=== PATIENT | female | born 1935 | race Caucasian/White ===

== ENCOUNTER → 2016-07-25 | Outpatient (REF) | payer MEDICARE, BC ==
[2016-07-25 14:19] LABS: CALCIUM LEVEL 8.4 MG/DL (8.8-10.2); CREATININE FOR GFR 0.98 MG/DL (0.55-1.02); FREE T4 0.96 NG/DL (0.76-1.46); POTASSIUM SERUM 3.8 MEQ/L (3.5-5.1)
== END ==
LOC: M LABDRAW1 13:00
PROVIDERS: ATTEND Physician Assistant
DX: I10 Essential (primary) hypertension (principal); R73.01 Impaired fasting glucose; E03.9 Hypothyroidism, unspecified; N95.1 Menopausal and female climacteric states

== ENCOUNTER → 2017-02-20 | Outpatient (REF) | payer MEDICARE, BC ==
[2017-02-20 12:30] LABS: ALBUMIN 3.5 GM/DL (3.2-5.2); ALBUMIN/GLOBULIN RATIO 1.03 (1.00-1.93); BILIRUBIN,TOTAL 0.3 MG/DL (0.2-1.0); CALCIUM LEVEL 8.6 MG/DL (8.8-10.2); CREATININE FOR GFR 1.24 MG/DL (0.55-1.02); FREE T4 1.24 NG/DL (0.76-1.46); GLOMERULAR FILTRATION RATE 44.1 (>32); POTASSIUM SERUM 4.1 MEQ/L (3.5-5.1); TOTAL PROTEIN 6.9 GM/DL (6.4-8.2)
== END ==
LOC: M LABDRAW1 10:06
PROVIDERS: ATTEND Physician Assistant
DX: I10 Essential (primary) hypertension (principal); E03.9 Hypothyroidism, unspecified; E83.51 Hypocalcemia

== ENCOUNTER → 2017-08-28 | Outpatient (REF) | payer MEDICARE, BC ==
[2017-08-28 12:34] LABS: ESTIMATED AVERAGE GLUCOSE 126 MG/DL (60-110)
[2017-08-28 13:15] LABS: ANION GAP 9 MEQ/L (8-16); BLOOD UREA NITROGEN 16 MG/DL (7-18); CARBON DIOXIDE LEVEL 25 MEQ/L (21-32); CHLORIDE LEVEL 109 MEQ/L (98-107); CHOLESTEROL LEVEL 162 MG/DL (<200); CREATININE FOR GFR 1.05 MG/DL (0.55-1.30); FREE T4 1.13 NG/DL (0.76-1.46); GLOMERULAR FILTRATION RATE 53.4 (>32); GLUCOSE, FASTING 127 MG/DL (70-100); HDL CHOLESTEROL 36 MG/DL (>40); NON-HDL-C 126 MG/DL; POTASSIUM SERUM 3.8 MEQ/L (3.5-5.1); SODIUM LEVEL 143 MEQ/L (136-145); TRIGLYCERIDES LEVEL 215 MG/DL (<150)
== END ==
LOC: M LABDRAW1 09:24
DX: E03.9 Hypothyroidism, unspecified (principal); R73.01 Impaired fasting glucose; I10 Essential (primary) hypertension
CPT/HCPCS: 84443

== ENCOUNTER → 2017-08-31 | Outpatient (REF) | payer MEDICARE, BC ==
[2017-08-31 14:15] LABS: FREE T4 1.14 NG/DL (0.76-1.46)
[2017-09-03 00:06] LABS: HERPES ZOSTER, VARICELLA IgG 1671 index (Immune >165)
[2017-09-03 00:06] LABS: HERPES ZOSTER, VARICELLA IgM <0.91 index (0.00-0.90)
== END ==
LOC: M LAB REF 12:00
DX: E03.9 Hypothyroidism, unspecified (principal); Z28.3 Underimmunization status
CPT/HCPCS: 84443

== ENCOUNTER → 2018-02-19 | Outpatient (REF) | payer MEDICARE, BC ==
[2018-02-19 12:32] LABS: ANION GAP 7 MEQ/L (8-16); BLOOD UREA NITROGEN 14 MG/DL (7-18); CALCIUM LEVEL 8.6 MG/DL (8.8-10.2); CARBON DIOXIDE LEVEL 30 MEQ/L (21-32); CHLORIDE LEVEL 106 MEQ/L (98-107); CREATININE FOR GFR 1.14 MG/DL (0.55-1.30); FREE T4 0.99 NG/DL (0.76-1.46); GLOMERULAR FILTRATION RATE 48.5 (>32); GLUCOSE, FASTING 125 MG/DL (70-100); POTASSIUM SERUM 3.9 MEQ/L (3.5-5.1); SODIUM LEVEL 143 MEQ/L (136-145)
[2018-02-19 13:14] LABS: ESTIMATED AVERAGE GLUCOSE 128 MG/DL (60-110); HEMOGLOBIN A1c 6.1 %
== END ==
LOC: M LABDRAW1 11:07
DX: I10 Essential (primary) hypertension (principal); E03.9 Hypothyroidism, unspecified; R63.5 Abnormal weight gain
CPT/HCPCS: 84443

== ENCOUNTER → 2018-03-30 | Outpatient (REF) | payer MEDICARE, BC ==
[2018-03-30 13:06] LABS: ANION GAP 10 MEQ/L (8-16); BLOOD UREA NITROGEN 28 MG/DL (7-18); CALCIUM LEVEL 9.4 MG/DL (8.8-10.2); CARBON DIOXIDE LEVEL 28 MEQ/L (21-32); CHLORIDE LEVEL 103 MEQ/L (98-107); CREATININE FOR GFR 1.35 MG/DL (0.55-1.30); FREE T4 1.29 NG/DL (0.76-1.46); GLOMERULAR FILTRATION RATE 39.9 (>32); GLUCOSE, FASTING 106 MG/DL (70-100); POTASSIUM SERUM 3.8 MEQ/L (3.5-5.1); SODIUM LEVEL 141 MEQ/L (136-145)
== END ==
LOC: M LABDRAW1 10:50
DX: I10 Essential (primary) hypertension (principal); E03.9 Hypothyroidism, unspecified
CPT/HCPCS: 84443

== ENCOUNTER → 2018-08-28 | Outpatient (REF) | payer MEDICARE, BC ==
[2018-08-28 16:27] LABS: CALCIUM LEVEL 9.1 MG/DL (8.8-10.2); CREATININE FOR GFR 1.14 MG/DL (0.55-1.30); GLOMERULAR FILTRATION RATE 48.5 (>32); POTASSIUM SERUM 3.5 MEQ/L (3.5-5.1)
== END ==
LOC: M LABDRAW1 16:05
PROVIDERS: ATTEND Physician Assistant
DX: I10 Essential (primary) hypertension (principal)

== ENCOUNTER → 2018-11-12 | Outpatient (REF) | payer MEDICARE, BC ==
[2018-11-12 12:07] LABS: CALCIUM LEVEL 9.2 MG/DL (8.8-10.2); CREATININE FOR GFR 1.35 MG/DL (0.55-1.30); FREE T4 1.05 NG/DL (0.76-1.46); GLOMERULAR FILTRATION RATE 39.9 (>32); POTASSIUM SERUM 3.6 MEQ/L (3.5-5.1); THYROID STIMULATING HORMONE 2.01 uIU/ML (0.358-3.740)
== END ==
LOC: M LABDRAW1 09:23
PROVIDERS: ATTEND Physician Assistant
DX: I10 Essential (primary) hypertension (principal); R73.01 Impaired fasting glucose; E03.9 Hypothyroidism, unspecified

== ENCOUNTER → 2019-03-01 | Outpatient (REF) | payer MEDICARE, BC ==
[2019-03-01 16:00] LABS: HEMATOCRIT 38.1 % (36.0-47.0); HEMOGLOBIN 12.8 g/dl (12.0-15.5); MEAN CORPUSCULAR HGB CONC 33.6 g/dl (32.0-36.5); MEAN CORPUSCULAR VOLUME 89.2 fl (80.0-96.0); PLATELET COUNT, AUTOMATED 226 10^3/uL (150-450); RED BLOOD COUNT 4.27 10^6/uL (4.00-5.40); WHITE BLOOD COUNT 5.9 10^3/uL (4.0-10.0)
[2019-03-01 16:33] LABS: ALBUMIN 3.7 GM/DL (3.2-5.2); ALT/SGPT 18 U/L (12-78); BILIRUBIN,TOTAL 0.4 MG/DL (0.2-1.0); BLOOD UREA NITROGEN 25 MG/DL (7-18); CALCIUM LEVEL 9.1 MG/DL (8.8-10.2); CARBON DIOXIDE LEVEL 31 MEQ/L (21-32); CHLORIDE LEVEL 103 MEQ/L (98-107); CHOLESTEROL LEVEL 188 MG/DL (<200); CHOLESTEROL RISK RATIO 5.222 (<5); CREATININE FOR GFR 1.31 MG/DL (0.55-1.30); FREE T4 1.14 NG/DL (0.76-1.46); GLOMERULAR FILTRATION RATE 41.2 (>32); GLUCOSE, FASTING 116 MG/DL (70-100); HDL CHOLESTEROL 36 MG/DL (>40); NON-HDL-C 152 MG/DL; POTASSIUM SERUM 3.9 MEQ/L (3.5-5.1); SODIUM LEVEL 139 MEQ/L (136-145); TOTAL PROTEIN 7.4 GM/DL (6.4-8.2); TRIGLYCERIDES LEVEL 415 MG/DL (<150)
[2019-03-01 16:34] LABS: MALB URINE SIEMENS 13.8 MG/L; MAU/CREAT RATIO 11.7 MCG/MG (0.0-30.0)
[2019-03-01 16:35] LABS: HEMOGLOBIN A1c 5.7 %
== END ==
LOC: M LAB REF 15:34
DX: I10 Essential (primary) hypertension (principal); E78.2 Mixed hyperlipidemia; E03.9 Hypothyroidism, unspecified; R73.01 Impaired fasting glucose

== ENCOUNTER → 2020-03-14 | Outpatient (REF) | payer MEDICARE, BC ==
[2020-03-14 15:42] LABS: HEMATOCRIT 39.1 % (36.0-47.0); HEMOGLOBIN 12.8 g/dl (12.0-15.5); MEAN CORPUSCULAR HEMOGLOBIN 28.8 pg (27.0-33.0); MEAN CORPUSCULAR HGB CONC 32.7 g/dl (32.0-36.5); MEAN CORPUSCULAR VOLUME 87.9 fl (80.0-96.0); PLATELET COUNT, AUTOMATED 228 10^3/uL (150-450); RED BLOOD COUNT 4.45 10^6/uL (4.00-5.40); WHITE BLOOD COUNT 6.6 10^3/uL (4.0-10.0)
[2020-03-14 16:04] LABS: TOTAL PROTEIN,RANDOM URINE 18.4 MG/DL (0.0-12.0)
[2020-03-14 16:18] LABS: HEMOGLOBIN A1c 5.8 %
== END ==
LOC: M LAB REF 15:14
PROVIDERS: ATTEND Physician Assistant
DX: I10 Essential (primary) hypertension (principal); E78.2 Mixed hyperlipidemia; R73.01 Impaired fasting glucose; E03.9 Hypothyroidism, unspecified

== ENCOUNTER → 2020-03-16 | Outpatient (REF) | payer MEDICARE, BC ==
[2020-03-16 18:45] LABS: ALBUMIN 3.9 GM/DL (3.2-5.2); BILIRUBIN,TOTAL 0.4 MG/DL (0.2-1.0); CALCIUM LEVEL 9.7 MG/DL (8.8-10.2); CHOLESTEROL RISK RATIO 4.512 (<5); CREATININE FOR GFR 1.92 MG/DL (0.55-1.30); FREE T4 1.25 NG/DL (0.76-1.46); GLOMERULAR FILTRATION RATE 26.4 (>32); POTASSIUM SERUM 4.2 MEQ/L (3.5-5.1); THYROID STIMULATING HORMONE 3.29 uIU/ML (0.358-3.740); TOTAL PROTEIN 7.5 GM/DL (6.4-8.2)
== END ==
LOC: M LAB REF 16:53
PROVIDERS: ATTEND Physician Assistant
DX: I10 Essential (primary) hypertension (principal); E78.2 Mixed hyperlipidemia; R73.01 Impaired fasting glucose; E03.9 Hypothyroidism, unspecified

== ENCOUNTER → 2020-11-26 | Outpatient (REF) | payer MEDICARE, BC ==
[2020-11-26 12:28] LABS: HEMATOCRIT 40.5 % (36.0-47.0); HEMOGLOBIN 13.6 g/dl (12.0-15.5); MEAN CORPUSCULAR HEMOGLOBIN 29.1 pg (27.0-33.0); MEAN CORPUSCULAR HGB CONC 33.6 g/dl (32.0-36.5); MEAN CORPUSCULAR VOLUME 86.7 fl (80.0-96.0); PLATELET COUNT, AUTOMATED 216 10^3/uL (150-450); RED BLOOD COUNT 4.67 10^6/uL (4.00-5.40)
[2020-11-26 12:54] LABS: TOTAL PROTEIN,RANDOM URINE 33.9 MG/DL (0.0-12.0)
[2020-11-26 13:05] LABS: BILIRUBIN,TOTAL 0.4 MG/DL (0.2-1.0); CALCIUM LEVEL 9.6 MG/DL (8.8-10.2); CREATININE FOR GFR 1.14 MG/DL (0.55-1.30); FREE T4 1.03 NG/DL (0.76-1.46); GLOMERULAR FILTRATION RATE 48.2 (>32); POTASSIUM SERUM 3.7 MEQ/L (3.5-5.1); THYROID STIMULATING HORMONE 3.98 uIU/ML (0.358-3.740); TOTAL PROTEIN 7.7 GM/DL (6.4-8.2)
[2020-11-26 13:14] LABS: HEMOGLOBIN A1c 5.7 %
== END ==
LOC: M LAB REF 10:56
PROVIDERS: ATTEND Internal Medicine
DX: I10 Essential (primary) hypertension (principal); E78.2 Mixed hyperlipidemia; R73.01 Impaired fasting glucose; E03.9 Hypothyroidism, unspecified

== ENCOUNTER → 2021-10-04 | Outpatient (REF) | payer MEDICARE, BC ==
[2021-10-04 17:50] LABS: BASO % 0.5 % (0.0-1.0); EOS # 0.3 10^3/uL (0.0-0.5); EOS % 5.2 % (0.0-3.0); HEMATOCRIT 40.5 % (36.0-47.0); HEMOGLOBIN 13.5 g/dl (12.0-15.5); LYMPH # 2.2 10^3/uL (1.5-5.0); LYMPH % 34.7 % (24.0-44.0); MEAN CORPUSCULAR HEMOGLOBIN 29.8 pg (27.0-33.0); MEAN CORPUSCULAR HGB CONC 33.3 g/dl (32.0-36.5); MEAN CORPUSCULAR VOLUME 89.4 fl (80.0-96.0); MONO # 0.6 10^3/uL (0.0-0.8); MONO % 9.4 % (2.0-8.0); NEUTROPHILS # 3.1 10^3/uL (1.5-8.5); NEUTROPHILS % 49.7 % (36.0-66.0); PLATELET COUNT, AUTOMATED 219 10^3/uL (150-450); RED BLOOD COUNT 4.53 10^6/uL (4.00-5.40); WHITE BLOOD COUNT 6.3 10^3/uL (4.0-10.0)
[2021-10-04 18:14] LABS: ALBUMIN 3.5 GM/DL (3.2-5.2); BILIRUBIN,TOTAL 0.7 MG/DL (0.2-1.0); CALCIUM LEVEL 8.7 MG/DL (8.8-10.2); CHOLESTEROL RISK RATIO 5.25 (<5); CREATININE FOR GFR 1.56 MG/DL (0.55-1.30); FREE T4 1.01 NG/DL (0.76-1.46); GLOMERULAR FILTRATION RATE 33.5 (>32); POTASSIUM SERUM 3.6 MEQ/L (3.5-5.1); THYROID STIMULATING HORMONE 7.82 uIU/ML (0.358-3.740); TOTAL PROTEIN 6.6 GM/DL (6.4-8.2)
[2021-10-04 18:16] LABS: TOTAL 25(OH) VITAMIN D 39.2 NG/ML (30.0-100.0)
[2021-10-04 18:51] LABS: HEMOGLOBIN A1c 5.9 %
== END ==
LOC: M LAB REF 17:32
PROVIDERS: ATTEND Internal Medicine
DX: E03.9 Hypothyroidism, unspecified (principal); R73.01 Impaired fasting glucose; E78.2 Mixed hyperlipidemia; I10 Essential (primary) hypertension

== ENCOUNTER → 2022-01-28 | Outpatient (REF) | payer MEDICARE, BC ==
[2022-01-28 16:49] LABS: ALBUMIN 3.7 GM/DL (3.2-5.2); BILIRUBIN,TOTAL 0.4 MG/DL (0.2-1.0); CALCIUM LEVEL 9.1 MG/DL (8.8-10.2); CREATININE FOR GFR 1.19 MG/DL (0.55-1.30); GLOMERULAR FILTRATION RATE 45.7 (>32); POTASSIUM SERUM 3.9 MEQ/L (3.5-5.1); THYROID STIMULATING HORMONE 1.68 uIU/ML (0.358-3.740); THYROXINE (T4) 9.8 UG/DL (4.5-12.0); TOTAL PROTEIN 7.6 GM/DL (6.4-8.2)
== END ==
LOC: M LAB REF 14:38
PROVIDERS: ATTEND Internal Medicine
DX: N18.9 Chronic kidney disease, unspecified (principal); E03.9 Hypothyroidism, unspecified

== ENCOUNTER → 2022-09-28 | Outpatient (REF) | payer MEDICARE, BC ==
[2022-09-28 12:16] LABS: BASO % 0.5 % (0.0-1.0); EOS # 0.2 10^3/uL (0.0-0.5); EOS % 3.5 % (0.0-3.0); HEMOGLOBIN 13.8 g/dl (12.0-15.5); LYMPH # 2.8 10^3/uL (1.5-5.0); LYMPH % 44.1 % (24.0-44.0); MEAN CORPUSCULAR HEMOGLOBIN 29.7 pg (27.0-33.0); MEAN CORPUSCULAR HGB CONC 33.7 g/dl (32.0-36.5); MEAN CORPUSCULAR VOLUME 88.4 fl (80.0-96.0); MONO # 0.5 10^3/uL (0.0-0.8); MONO % 7.4 % (2.0-8.0); NEUTROPHILS # 2.7 10^3/uL (1.5-8.5); NEUTROPHILS % 43.4 % (36.0-66.0); PLATELET COUNT, AUTOMATED 198 10^3/uL (150-450); RED BLOOD COUNT 4.64 10^6/uL (4.00-5.40); WHITE BLOOD COUNT 6.3 10^3/uL (4.0-10.0)
[2022-09-28 12:52] LABS: ALBUMIN 3.9 G/DL (3.2-5.2); BILIRUBIN,TOTAL 0.5 MG/DL (0.3-1.2); CHOLESTEROL RISK RATIO 5.28 (<5); CREATININE FOR GFR 1.16 MG/DL (0.55-1.30); HDL CHOLESTEROL 31.4 MG/DL (>40); NON-HDL-C 134.6 MG/DL; POTASSIUM SERUM 4.3 MMOL/L (3.5-5.1); TOTAL PROTEIN 7.1 G/DL (5.7-8.2)
[2022-09-28 12:53] LABS: FREE T4 1.02 NG/DL (0.89-1.76); THYROID STIMULATING HORMONE 3.761 uIU/ML (0.55-4.78)
[2022-09-28 13:43] LABS: HEMOGLOBIN A1c 5.6 % (4.0-6.0)
== END ==
LOC: M LAB REF 11:01
PROVIDERS: ATTEND Internal Medicine
DX: E03.9 Hypothyroidism, unspecified (principal); N18.9 Chronic kidney disease, unspecified; E78.2 Mixed hyperlipidemia; R73.01 Impaired fasting glucose

== ENCOUNTER 2023-04-20 10:49 | Emergency (ER) | payer MEDICARE, BC ==
[~2023-04-20] VITALS: Ht 165.1 cm; Wt 79.5 kg
[2023-04-20] MEDS ORDERED: LOSA100T46 (10:59)
[2023-04-20] MEDS ORDERED: ZOLP10TA2 (10:59)
[2023-04-20] MEDS ORDERED: AMLO1TAB25 (10:59)
[2023-04-20] MEDS ORDERED: OXYB5TAB11 (10:59)
[2023-04-20] MEDS ORDERED: TRAM50TA2 (10:59)
[2023-04-20] MEDS ORDERED: LEVO125T4 (10:59)
[2023-04-20] MEDS ORDERED: METO100T5 (10:59)
[2023-04-20] MEDS ORDERED: META28.32 PO (12:44)
[2023-04-20 13:02] VITALS: BP 150/91; TEMP 98; O2SAT 96
== END 2023-04-20 13:30 | disposition home or self-care (01) ==
LOC: M ED 10:49
DX: K62.3 Rectal prolapse (principal)

== ENCOUNTER 2023-05-01 22:01 | Inpatient (IN) | payer MEDICARE, BC ==
[~2023-05-01] VITALS: Ht 165.1 cm; Wt 73.5 kg
[~2023-05-01 22:01] MED LIST: AMLO1TAB25; LEVO125T4; LOSA100T46; META28.32 PO; METO100T5; OXYB5TAB11; TRAM50TA2; ZOLP10TA2
[2023-05-01 23:07] LABS: BASO % 0.3 % (0.0-1.0); EOS # 0.2 10^3/uL (0.0-0.5); EOS % 2.9 % (0.0-3.0); HEMATOCRIT 34.6 % (36.0-47.0); HEMOGLOBIN 11.5 g/dl (12.0-15.5); LYMPH # 1.6 10^3/uL (1.5-5.0); LYMPH % 21.2 % (24.0-44.0); MEAN CORPUSCULAR HEMOGLOBIN 29.7 pg (27.0-33.0); MEAN CORPUSCULAR HGB CONC 33.2 g/dl (32.0-36.5); MEAN CORPUSCULAR VOLUME 89.4 fl (80.0-96.0); MONO # 0.7 10^3/uL (0.0-0.8); NEUTROPHILS # 5.1 10^3/uL (1.5-8.5); NEUTROPHILS % 66.3 % (36.0-66.0); PLATELET COUNT, AUTOMATED 208 10^3/uL (150-450); RED BLOOD COUNT 3.87 10^6/uL (4.00-5.40); WHITE BLOOD COUNT 7.7 10^3/uL (4.0-10.0)
[2023-05-01 23:23] LABS: INR 1.16; PROTHROMBIN TIME 14.4 SECONDS (12.5-14.5)
[2023-05-01 23:24] LABS: PARTIAL THROMBOPLASTIN TIME 40.5 SECONDS (24.8-34.2)
[2023-05-01 23:30] LABS: LIPASE 23 U/L (12-53)
[2023-05-01 23:32] LABS: ALBUMIN 2.9 G/DL (3.2-5.2); ALKALINE PHOSPHATASE 97 U/L (46-116); ALT/SGPT 15 U/L (7.0-40); AST/SGOT 22 U/L (<34); BILIRUBIN,DIRECT 0.1 MG/DL (<0.4); BILIRUBIN,TOTAL 0.4 MG/DL (0.3-1.2); BLOOD UREA NITROGEN 13 MG/DL (9-23); CALCIUM LEVEL 9.1 MG/DL (8.3-10.6); CARBON DIOXIDE LEVEL 30 MMOL/L (20-31); CHLORIDE LEVEL 106 MMOL/L (98-107); CK-MB VALUE MASS < 1.0 NG/ML (<3.6); CREATININE FOR GFR 0.83 MG/DL (0.55-1.30); GLOMERULAR FILTRATION RATE > 60.0 (>32); GLUCOSE, FASTING 117 MG/DL (74-106); POTASSIUM SERUM 3.4 MMOL/L (3.5-5.1); SODIUM LEVEL 140 MMOL/L (136-145)
[2023-05-01 23:34] LABS: CPK CREATINE PHOSPHOKINASE 98 U/L (34-145); MB/CK RELATIVE INDEX 1.02 (< OR =4)
[2023-05-02] MEDS ORDERED: ONDANSETRON 4MG 2ML VIAL IV PRN (00:10)
[2023-05-02] MEDS ORDERED: NORCO, ANEXSIA 5/325MG TABLET (HYDROcodone/ACETAMINOPHEN) PO PRN (00:10)
[2023-05-02] MEDS ORDERED: LR 500 ML IV SCH (00:10)
[2023-05-02] MEDS ORDERED: POTASSIUM CHLORIDE 10% LIQ 20MEQ/15ML UDC PO ONE (00:40)
[2023-05-02] MEDS ORDERED: OXYB5TAB11 PO (01:25)
[2023-05-02] MEDS ORDERED: TRAM50TA2 PO (01:25)
[2023-05-02] MEDS ORDERED: AMLO1TAB25 PO (01:25)
[2023-05-02] MEDS ORDERED: SYNT125T PO (01:25)
[2023-05-02] MEDS ORDERED: ZOLP10TA2 PO (01:25)
[2023-05-02] MEDS ORDERED: META28.32 PO (01:25)
[2023-05-02] MEDS ORDERED: METO100T5 PO (01:25)
[2023-05-02] MEDS ORDERED: IBUP1TAB6 PO (01:25)
[2023-05-02] MEDS ORDERED: LOSA100T46 PO (01:25)
[2023-05-02 02:44] VITALS: BP 146/69; TEMP 98.7; O2SAT 97
[2023-05-02 04:00] VITALS: BP 127/59; TEMP 97; O2SAT 91
[2023-05-02 04:15] LABS: BLOOD UREA NITROGEN 11 MG/DL (9-23); CALCIUM LEVEL 8.7 MG/DL (8.3-10.6); CARBON DIOXIDE LEVEL 31 MMOL/L (20-31); CHLORIDE LEVEL 107 MMOL/L (98-107); CK-MB VALUE MASS < 1.0 NG/ML (<3.6); CPK CREATINE PHOSPHOKINASE 105 U/L (34-145); CREATININE FOR GFR 0.81 MG/DL (0.55-1.30); GLOMERULAR FILTRATION RATE > 60.0 (>32); GLUCOSE, FASTING 122 MG/DL (74-106); MB/CK RELATIVE INDEX 0.95 (< OR =4); POTASSIUM SERUM 3.3 MMOL/L (3.5-5.1); SODIUM LEVEL 142 MMOL/L (136-145)
[2023-05-02 07:32] VITALS: BP 153/65; TEMP 98; O2SAT 96
[2023-05-02 07:42] LABS: MAGNESIUM LEVEL 1.7 MG/DL (1.8-2.4)
[2023-05-02] MEDS: KCL 10MEQ/100ML SWI (KRUN) 10 MEQ in IV 1 EA IV SCH ×3 (08:07→11:44)
[2023-05-02] MEDS: DOCUSATE SODIUM 100MG CAPSULE PO SCH ×2 (08:08→20:46)
[2023-05-02] MEDS ORDERED: METAMUCIL (PSYLLIUM) PACKET PO SCH (09:00)
[2023-05-02] MEDS ORDERED: HEPARIN SOD (PORCINE) 5000UNITS/ML 1ML VIAL/SYRINGE SC SCH (09:00)
[2023-05-02] MEDS ORDERED: HOME MED LIST COMPLETE! XX SCH (10:20)
[2023-05-02 11:46] VITALS: BP 158/68; TEMP 97.8; O2SAT 94
[2023-05-02] MEDS ORDERED: traMADol 50 MG TAB PO PRN (11:50)
[2023-05-02] MEDS: LEVOTHYROXINE 125MCG TABLET (0.125MG) PO SCH (12:32)
[2023-05-02] MEDS: oxyBUTYnin 5 MG TAB PO SCH ×2 (12:53→20:46)
[2023-05-02] MEDS: METOPROLOL TARTRATE 100MG TAB PO SCH ×2 (12:53→20:47)
[2023-05-02] MEDS: MAG SULF 1GM/100ML (MAG RUN) 1 GM in IV 1 EA IV SCH ×2 (12:54→13:47)
[2023-05-02] MEDS: MIRALAX *UNIT DOSE* 17GM PACKET PO SCH ×2 (12:54→20:47)
[2023-05-02] MEDS: LOSARTAN 50MG TABLET PO SCH (12:54)
[2023-05-02 13:25] LABS: THYROID STIMULATING HORMONE 0.748 uIU/ML (0.55-4.78)
[2023-05-02 20:40] VITALS: BP 171/70; TEMP 97.3; O2SAT 95
[2023-05-02] MEDS: HEPARIN SOD (PORCINE) 5000UNITS/ML 1ML VIAL/SYRINGE SQ SCH (20:47)
[2023-05-03 00:07] VITALS: BP 133/61; TEMP 98.4; O2SAT 96
[2023-05-03] MEDS ORDERED: DEXTROSE 50% 50ML SYRINGE IV PRN (01:05)
[2023-05-03] MEDS ORDERED: GLUCAGON INJ 1MG VIAL SC PRN (01:05)
[2023-05-03] MEDS ORDERED: GLUCOSE 4GM CHEW TABLET PO PRN (01:05)
[2023-05-03 04:14] VITALS: BP 169/69; TEMP 97.9; O2SAT 96
[2023-05-03 05:43] LABS: HEMATOCRIT 35.3 % (36.0-47.0); HEMOGLOBIN 11.9 g/dl (12.0-15.5); MEAN CORPUSCULAR HEMOGLOBIN 29.6 pg (27.0-33.0); MEAN CORPUSCULAR HGB CONC 33.7 g/dl (32.0-36.5); MEAN CORPUSCULAR VOLUME 87.8 fl (80.0-96.0); PLATELET COUNT, AUTOMATED 233 10^3/uL (150-450); RED BLOOD COUNT 4.02 10^6/uL (4.00-5.40); WHITE BLOOD COUNT 5.3 10^3/uL (4.0-10.0)
[2023-05-03] MEDS: LEVOTHYROXINE 125MCG TABLET (0.125MG) PO SCH (05:44)
[2023-05-03] MEDS: ACETAMINOPHEN TAB 650MG DOSE (2X325MG) PO PRN ×2 (05:49→16:02)
[2023-05-03 06:11] LABS: BLOOD UREA NITROGEN 9 MG/DL (9-23); CALCIUM LEVEL 9.2 MG/DL (8.3-10.6); CARBON DIOXIDE LEVEL 29 MMOL/L (20-31); CHLORIDE LEVEL 105 MMOL/L (98-107); CREATININE FOR GFR 0.79 MG/DL (0.55-1.30); GLOMERULAR FILTRATION RATE > 60.0 (>32); GLUCOSE, FASTING 118 MG/DL (74-106); POTASSIUM SERUM 3.6 MMOL/L (3.5-5.1); SODIUM LEVEL 141 MMOL/L (136-145)
[2023-05-03 07:25] LABS: MAGNESIUM LEVEL 2.1 MG/DL (1.8-2.4)
[2023-05-03] MEDS ORDERED: INSULIN LISPRO (NovoLOG) PER UNIT SC SCH ×2 (07:30→21:00)
[2023-05-03 08:05] VITALS: BP 150/80; TEMP 99.1; O2SAT 95
[2023-05-03] MEDS: METOPROLOL TARTRATE 100MG TAB PO SCH ×2 (09:15→21:00)
[2023-05-03] MEDS: DOCUSATE SODIUM 100MG CAPSULE PO SCH ×2 (09:15→21:00)
[2023-05-03] MEDS: HEPARIN SOD (PORCINE) 5000UNITS/ML 1ML VIAL/SYRINGE SQ SCH ×2 (09:16→20:59)
[2023-05-03] MEDS: LOSARTAN 50MG TABLET PO SCH (09:17)
[2023-05-03] MEDS: oxyBUTYnin 5 MG TAB PO SCH ×2 (09:17→21:00)
[2023-05-03] MEDS: MIRALAX *UNIT DOSE* 17GM PACKET PO SCH ×2 (09:17→20:59)
[2023-05-03 12:25] VITALS: BP 157/67; TEMP 98.5; O2SAT 98
[2023-05-03] MEDS ORDERED: **hydrALAZINE** 10 MG TAB PO PRN (13:05)
[2023-05-03 15:48] VITALS: BP 131/58; TEMP 98.7; O2SAT 95
[2023-05-03] MEDS ORDERED: PREVNAR-20 VACCINE 0.5ML SYRINGE IM.IMMUN ONE (17:00)
[2023-05-03 20:54] VITALS: BP 141/77; TEMP 97.6; O2SAT 95
[2023-05-04] VITALS (7 sets, daily range): BP systolic 118–193; BP diastolic 62–83; TEMP 98–99.6; O2SAT 93–97
[2023-05-04] MEDS: LEVOTHYROXINE 125MCG TABLET (0.125MG) PO SCH (05:38)
[2023-05-04] MEDS: HEPARIN SOD (PORCINE) 5000UNITS/ML 1ML VIAL/SYRINGE SQ SCH ×2 (09:28→19:46)
[2023-05-04] MEDS: DOCUSATE SODIUM 100MG CAPSULE PO SCH ×2 (09:28→19:46)
[2023-05-04] MEDS: LOSARTAN 50MG TABLET PO SCH (09:28)
[2023-05-04] MEDS: METOPROLOL TARTRATE 100MG TAB PO SCH ×2 (09:29→19:46)
[2023-05-04] MEDS: oxyBUTYnin 5 MG TAB PO SCH ×2 (09:29→19:46)
[2023-05-04] MEDS: MIRALAX *UNIT DOSE* 17GM PACKET PO SCH ×2 (09:29→19:47)
[2023-05-04] MEDS ORDERED: HYDR-3910 PO (11:13)
[2023-05-04] MEDS ORDERED: COLA100C5 PO (11:15)
[2023-05-04] MEDS ORDERED: MIRA3350 PO (11:15)
[2023-05-05 06:00] VITALS: BP 157/71; TEMP 97.9; O2SAT 96
[2023-05-05] MEDS: LEVOTHYROXINE 125MCG TABLET (0.125MG) PO SCH (06:46)
[2023-05-05 08:49] VITALS: BP 157/71
[2023-05-05] MEDS: DOCUSATE SODIUM 100MG CAPSULE PO SCH (08:49)
[2023-05-05] MEDS: METOPROLOL TARTRATE 100MG TAB PO SCH (08:49)
[2023-05-05] MEDS: LOSARTAN 50MG TABLET PO SCH (08:50)
[2023-05-05] MEDS: oxyBUTYnin 5 MG TAB PO SCH (08:50)
[2023-05-05] MEDS: HEPARIN SOD (PORCINE) 5000UNITS/ML 1ML VIAL/SYRINGE SQ SCH (08:50)
[2023-05-05] MEDS: MIRALAX *UNIT DOSE* 17GM PACKET PO SCH (08:50)
[2023-05-05 09:56] VITALS: BP 136/66
== END 2023-05-05 10:25 | DRG 92 ==
LOC: M ED 22:01 → EDBD 22:01 → M ED INP 05-02 00:08 → M PCU 05-02 02:39 → M MSPAV 05-04 16:37
PROVIDERS: ADMIT Internal Medicine; ATTEND Internal Medicine
PROC: B246ZZZ Ultrasonography of Right and Left Heart (ICD-10-PCS; principal; 2023-05-02)
DX: R29.6 Repeated falls (principal); K62.5 Hemorrhage of anus and rectum; K62.3 Rectal prolapse; I10 Essential (primary) hypertension; E03.9 Hypothyroidism, unspecified; N32.81 Overactive bladder; G47.00 Insomnia, unspecified; R53.1 Weakness; D50.0 Iron deficiency anemia secondary to blood loss (chronic); K59.00 Constipation, unspecified; Z66 Do not resuscitate; G89.29 Other chronic pain; M54.9 Dorsalgia, unspecified; F03.90 Unspecified dementia, unspecified severity, without behavioral disturbance, psychotic disturbance, mood disturbance, and anxiety; R41.0 Disorientation, unspecified; Z79.890 Hormone replacement therapy; Z79.899 Other long term (current) drug therapy

== ENCOUNTER → 2023-05-05 | Outpatient (REF) ==
[~2023-05-05] MED LIST changes: +AMLO1TAB25 PO; +COLA100C5 PO; +HYDR-3910 PO; +IBUP1TAB6 PO; +LOSA100T46 PO; +METO100T5 PO; +MIRA3350 PO; +OXYB5TAB11 PO; +SYNT125T PO; +TRAM50TA2 PO; +ZOLP10TA2 PO
[2023-05-05 15:28] LABS: HEMATOCRIT 40.1 % (36.0-47.0); HEMOGLOBIN 13.2 g/dl (12.0-15.5); MEAN CORPUSCULAR HEMOGLOBIN 29.1 pg (27.0-33.0); MEAN CORPUSCULAR HGB CONC 32.9 g/dl (32.0-36.5); MEAN CORPUSCULAR VOLUME 88.3 fl (80.0-96.0); PLATELET COUNT, AUTOMATED 320 10^3/uL (150-450); RED BLOOD COUNT 4.54 10^6/uL (4.00-5.40); WHITE BLOOD COUNT 6.9 10^3/uL (4.0-10.0)
[2023-05-05 15:54] LABS: CALCIUM LEVEL 9.2 MG/DL (8.3-10.6); CREATININE FOR GFR 1.12 MG/DL (0.55-1.30); GLOMERULAR FILTRATION RATE 48.9 (>32); POTASSIUM SERUM 3.9 MMOL/L (3.5-5.1)
== END ==
LOC: SKLAB7 14:15
PROVIDERS: ATTEND Internal Medicine
DX: I10 Essential (primary) hypertension (principal)

== ENCOUNTER 2024-03-26 17:16 | Emergency (ER) | payer MEDICARE ==
[~2024-03-26] VITALS: Ht 157.5 cm; Wt 72.6 kg
[~2024-03-26 17:16] MED LIST changes: -HYDR-3910 PO; +HYDR25TA87 PO; -OXYB5TAB11; -OXYB5TAB11 PO; +OXYB5TAB14; +OXYB5TAB14 PO
[2024-03-26 18:17] VITALS: TEMP 98.5
[2024-03-26 18:45] LABS: BASO % 0.4 % (0.0-1.0); EOS # 0.2 10^3/uL (0.0-0.5); EOS % 3.8 % (0.0-3.0); HEMATOCRIT 39.2 % (36.0-47.0); HEMOGLOBIN 13.3 g/dl (12.0-15.5); LYMPH # 1.9 10^3/uL (1.5-5.0); LYMPH % 34.1 % (24.0-44.0); MEAN CORPUSCULAR HEMOGLOBIN 29.8 pg (27.0-33.0); MEAN CORPUSCULAR HGB CONC 33.9 g/dl (32.0-36.5); MEAN CORPUSCULAR VOLUME 87.9 fl (80.0-96.0); MONO # 0.5 10^3/uL (0.0-0.8); MONO % 8.3 % (2.0-8.0); NEUTROPHILS # 2.9 10^3/uL (1.5-8.5); NEUTROPHILS % 52.9 % (36.0-66.0); PLATELET COUNT, AUTOMATED 198 10^3/uL (150-450); RED BLOOD COUNT 4.46 10^6/uL (4.00-5.40); WHITE BLOOD COUNT 5.5 10^3/uL (4.0-10.0)
[2024-03-26 19:07] LABS: ALBUMIN 3.6 G/DL (3.2-5.2); ALKALINE PHOSPHATASE 116 U/L (35-104); ALT/SGPT 13 U/L (7.0-40); AST/SGOT 14 U/L (<34); BILIRUBIN,DIRECT < 0.1 MG/DL (<0.4); BILIRUBIN,TOTAL 0.3 MG/DL (0.3-1.2); BLOOD UREA NITROGEN 18 MG/DL (9-23); CALCIUM LEVEL 9.7 MG/DL (8.3-10.6); CARBON DIOXIDE LEVEL 26 MMOL/L (20-31); CHLORIDE LEVEL 109 MMOL/L (98-107); CREATININE FOR GFR 1.04 MG/DL (0.55-1.30); GLOMERULAR FILTRATION RATE 53.1 (>32); GLUCOSE, FASTING 112 MG/DL (74-106); POTASSIUM SERUM 3.8 MMOL/L (3.5-5.1); SODIUM LEVEL 140 MMOL/L (136-145)
[2024-03-26 19:10] LABS: APPEARANCE, URINE HAZY (CLEAR); BACTERIA, URINE AUTO NEGATIVE (NEGATIVE); BILIRUBIN, URINE AUTO NEGATIVE (NEGATIVE); BLOOD, URINE BLOOD NEGATIVE (NEGATIVE); COLOR, URINE YELLOW (YELLOW); GLUCOSE, URINE (UA) AUTO NEGATIVE (NEGATIVE); KETONE, URINE AUTO TRACE mg/dL (NEGATIVE); LEUKOCYTE ESTERASE, URINE AUTO 3+ (NEGATIVE); MUCUS, URINE SMALL (NEGATIVE); NITRITE, URINE AUTO NEGATIVE (NEGATIVE); PROTEIN, URINE AUTO 1+ mg/dL (NEGATIVE); RBC, URINE AUTO 3 /HPF (0-3); SPECIFIC GRAVITY URINE AUTO 1.021 (1.002-1.035); SQUAMOUS EPITHELIAL CELL UR AU 3 /HPF (0-6); TRANSITIONAL EPITHELIAL AUTO <1 /HPF; UROBILINOGEN, URINE AUTO 0.2 mg/dL (0.0-2.0); WBC, URINE AUTO 35 /HPF (0-3)
[2024-03-26 20:45] VITALS: BP 171/66
[2024-03-26 20:46] VITALS: O2SAT 88
== END 2024-03-26 20:59 | disposition home or self-care (01) ==
LOC: M ED 17:16
DX: I10 Essential (primary) hypertension (principal); R00.1 Bradycardia, unspecified; E03.9 Hypothyroidism, unspecified; Z79.899 Other long term (current) drug therapy